=== PATIENT | male | born 1955 | race Caucasian/White ===

== ENCOUNTER 2017-02-26 03:59 | Inpatient (IN) ==
[2017-02-21 10:08] LABS: MANUAL DIFF NEEDED? NO; URINE MICRO REVIEW NEEDED? NO; URINE SOURCE CLEAN CATCH
[2017-02-21 10:24] LABS: BASO% 1.1 % (0.0-0.8); EOS# 0.23 X1000 (0.0-0.7); EOS% 2.7 % (0.0-10.0); HEMATOCRIT 44.3 % (42.0-52.0); HEMOGLOBIN 15.1 g/dL (14.0-18.0); IMM GRAN# 0.02 X1000 (0.0-0.04); IMM GRAN% 0.2 % (0.0-0.5); LYMPH% 32.7 % (20.5-51.1); MCH 30.5 PG (27-31); MCHC 34.1 g/dL (33-37); MCV 89.5 FL (81-99); MONO# 0.67 X1000 (0.11-0.59); MONO% 7.8 % (1.7-9.3); MPV 10.8 FL (7.4-10.4); NEUT% 55.5 % (42.2-75.2); PLT 253 X1000 (130-400); RBC 4.95 XMIL (4.7-6.1)
[2017-02-21 10:25] LABS: BILIRUBIN URINE NEGATIVE (NEGATIVE); BLOOD URINE NEGATIVE (NEGATIVE); COLOR YELLOW; GLUCOSE URINE NEGATIVE (NEGATIVE); LEUKOCYTES URINE NEGATIVE (NEGATIVE); NITRITE URINE NEGATIVE (NEGATIVE); PROTEIN URINE NEGATIVE (NEGATIVE); SP GRAVITY URINE 1.016; TURBIDITY URINE CLEAR (CLEAR); UR EPITHELIAL CELLS <10 /HPF (<10); URINE BACTERIA NEGATIVE /HPF; URINE RBC <10 /HPF (<10); URINE WBC <10 /HPF (<10); UROBILINOGEN URINE NORMAL (NORMAL)
[2017-02-21 10:33] LABS: INR 0.98; PROTIME 10.3 Seconds (9.2-11.7); PTT 27.9 Seconds (22.0-36.0)
[2017-02-21 10:45] LABS: AGAP 11; BUN 11 mg/dL (8-22); CHLORIDE 101 mmol/L (98-107); COSMO 278; POTASSIUM 4.3 mmol/L (3.5-5.1); SODIUM 140 mmol/L (136-145); TCO2 28 mmol/L (25-35)
[2017-02-26] MEDS ORDERED: PEPCID ONE (06:00)
[2017-02-26] MEDS ORDERED: LYRICA ONE (06:00)
[2017-02-26] MEDS ORDERED: COLACE ONE (06:00)
[2017-02-26] MEDS ORDERED: REGLAN ONE (06:00)
[2017-02-26] MEDS ORDERED: KEFZOL 2 GM/D5W 2 GM/50 ML IVPB ONE (06:01)
[2017-02-26] MEDS ORDERED: CELEBREX ONE (06:01)
[2017-02-26] MEDS ORDERED: LR 1,000 ML ONE (06:01)
[2017-02-26] MEDS ORDERED: DIPRIVAN 1% ONE ×2 (07:02→09:04)
[2017-02-26] MEDS ORDERED: VERSED ONE (07:04)
[2017-02-26] MEDS ORDERED: XYLOCAINE-MPF 2% ONE (07:04)
[2017-02-26] MEDS ORDERED: MARCAINE 0.25% PF ONE (07:07)
[2017-02-26] MEDS ORDERED: TORADOL ONE (07:07)
[2017-02-26] MEDS ORDERED: DURAMORPH ONE (07:07)
[2017-02-26] MEDS ORDERED: NEOSPORIN G.U. IRRIGANT ONE (07:08)
[2017-02-26] MEDS ORDERED: SODIUM CHLORIDE 0.9% ONE (07:08)
[2017-02-26] MEDS ORDERED: EXPAREL 1.3% ONE (07:08)
[2017-02-26] MEDS ORDERED: CYKLOKAPRON 1,000 MG/NS 1,000 MG/100 ML IVPB ONE (07:08)
[2017-02-26] MEDS ORDERED: FENTANYL ONE (07:26)
[2017-02-26] MEDS ORDERED: DECADRON ONE (08:03)
[2017-02-26] MEDS ORDERED: OFIRMEV 1000 MG/ISOTONIC SOLN 1,000 MG/100 ML BOTTLE ONE (08:11)
[2017-02-26] MEDS ORDERED: EPHEDRINE ONE (08:20)
[2017-02-26 08:33] LABS: URINE MICRO REVIEW NEEDED? NO; URINE SOURCE CATH
[2017-02-26] MEDS ORDERED: SODIUM CHLORIDE 0.9% 10 ML ONE (08:33)
[2017-02-26] MEDS ORDERED: NEO-SYNEPHRINE ONE (08:33)
[2017-02-26 08:40] LABS: BILIRUBIN URINE NEGATIVE (NEGATIVE); BLOOD URINE NEGATIVE (NEGATIVE); COLOR STRAW; GLUCOSE URINE NEGATIVE (NEGATIVE); LEUKOCYTES URINE NEGATIVE (NEGATIVE); NITRITE URINE NEGATIVE (NEGATIVE); PROTEIN URINE NEGATIVE (NEGATIVE); SP GRAVITY URINE 1.012; TURBIDITY URINE CLEAR (CLEAR); UR EPITHELIAL CELLS <10 /HPF (<10); URINE BACTERIA NEGATIVE /HPF; URINE RBC <10 /HPF (<10); URINE WBC <10 /HPF (<10); UROBILINOGEN URINE NORMAL (NORMAL)
[2017-02-26] MEDS ORDERED: NS 1,000 ML ONE (09:49)
[2017-02-26] MEDS ORDERED: MORPHINE IV PRN (10:59)
[2017-02-26] MEDS ORDERED: OXY IR PO PRN (10:59)
[2017-02-26] MEDS ORDERED: ZOFRAN IV PRN (10:59)
[2017-02-26] MEDS ORDERED: MILK OF MAGNESIA PO PRN (11:00)
[2017-02-26] MEDS: NS 1,000 ML IV SCH (11:20)
[2017-02-26] MEDS: PEPCID PO SCH (13:53)
[2017-02-26] MEDS: ULTRAM PO SCH ×2 (13:53→18:54)
[2017-02-26] MEDS: ASPIRIN PO SCH (13:54)
[2017-02-26] MEDS: TYLENOL PO SCH ×2 (13:54→21:11)
[2017-02-26] MEDS ORDERED: CYKLOKAPRON 1,000 MG in NS 100 ML IV ONE (14:00)
[2017-02-26] MEDS: KEFZOL 2 GM/D5W 2 GM/50 ML IVPB IV SCH (16:31)
[2017-02-26] MEDS ORDERED: AMBIEN PO PRN (21:00)
[2017-02-26] MEDS ORDERED: NORVASC PO SCH (21:00)
[2017-02-26] MEDS: LYRICA PO SCH (21:11)
[2017-02-26] MEDS: PERIDEX MT SCH (21:11)
[2017-02-27] MEDS: KEFZOL 2 GM/D5W 2 GM/50 ML IVPB IV SCH
[2017-02-27] MEDS: NS 1,000 ML IV SCH (00:30)
[2017-02-27] MEDS: ULTRAM PO SCH ×2 (00:56→05:39)
[2017-02-27] MEDS: TYLENOL PO SCH (05:39)
[2017-02-27 06:06] LABS: HEMATOCRIT 35.1 % (42.0-52.0)
[2017-02-27 06:28] LABS: AGAP 9; BUN 13 mg/dL (8-22); CALCIUM 8.2 mg/dL (8.8-10.2); CHLORIDE 107 mmol/L (98-107); COSMO 279; POTASSIUM 4.5 mmol/L (3.5-5.1); SODIUM 139 mmol/L (136-145); TCO2 23 mmol/L (25-35)
[2017-02-27 08:03] VITALS: BP 140/81
[2017-02-27] MEDS ORDERED: PATIENT'S OWN MED PO SCH ×2 (09:00)
[2017-02-27] MEDS ORDERED: COZAAR PO SCH (09:00)
[2017-02-27] MEDS ORDERED: DECADRON IV ONE (09:00)
[2017-02-27] MEDS ORDERED: CELEBREX PO SCH (09:00)
[2017-02-27] MEDS: PERIDEX MT SCH (09:29)
[2017-02-27] MEDS: LYRICA PO SCH (09:33)
[2017-02-27] MEDS: PEPCID PO SCH (09:33)
[2017-02-27] MEDS: ASPIRIN PO SCH (09:33)
== END 2017-02-27 11:25 | disposition home health service (06) ==
LOC: SURHOLD 03:59 → 4N 07:39
PROVIDERS: ADMIT Orthopaedic Surgery; ATTEND Orthopaedic Surgery